=== PATIENT | female | born 1990 | race Two or more races ===

== ENCOUNTER 2021-09-27 09:41 | Emergency (ER) | payer MEDICAID, OTHER ==
[~2021-09-27] VITALS: Ht 157.5 cm; Wt 63.0 kg
[2021-09-27 10:18] VITALS: BP 100/65
[2021-09-27] MEDS ORDERED: IBUPROFEN 600MG TABLET PO ONE (10:30)
== END 2021-09-27 12:09 | disposition home or self-care (01) ==
LOC: ER 09:41
DX: S80.01XA Contusion of right knee, initial encounter (principal); W18.39XA Other fall on same level, initial encounter; Y93.89 Activity, other specified; Y92.89 Other specified places as the place of occurrence of the external cause; Y99.8 Other external cause status
CPT/HCPCS: 73560; 81025; 99283